=== PATIENT | male | born 1975 | race Caucasian/White ===

== ENCOUNTER 2016-07-16 09:25 | Emergency (ER) | payer SELFPAY ==
--- NOTE | 2016-07-16 09:39 | EDPHY ---
HPI/HX/ROS/PE/MDM Narrative: CHIEF COMPLAINT: Flank pain HPI: The patient is a 40 y/o male arriving with his parents complaining of acute onset severe left flank pain at 06:45, about 3 hours ago, this morning when he urinated. [facility] and a UA there was positive for RBC. He was referred to the ED with concern for a kidney stone. The patient denies gross hematuria, fever, or abdominal pain. He has no prior history of kidney stones or abdominal surgeries. REVIEW OF SYSTEMS: Aside from elements discussed in the HPI, a comprehensive 10-point review of systems was reviewed and is negative. PMH: Neck surgery for abscess SOCIAL HISTORY: Parents at bedside PHYSICAL EXAM: General:Patient is alert, in moderate distress, appears to be in significant pain. ENT:Eyes are normal to inspection. ENT inspection normal. Neck: Normal inspection. Full range of motion. Respiratory:No respiratory distress. Breath sounds normal bilaterally. Cardiovascular: Regular rate and rhythm. Strong peripheral pulses. Normal cap refill. Abdomen:The abdomen is nontender to palpation. There are no peritoneal signs. Back: Normal to inspection. No tenderness to palpation. Skin: Normal color. No rash. Diaphoretic. Extremities: Normal appearance. Full range of motion. Neuro: Oriented x3. Normal motor function. Normal sensory function. ED Course: IV established. Labs drawn including CBC, CHEM. UA ordered. 1L IV NS and 1mg IV Dilaudid administered. CT abdomen/pelvis ordered. 1012: Patient continues to be in significant pain. 100mcg IV Fentanyl administered. 1115: CT shows left uretal stone about to empty into bladder. I discussed these findings with the patient. He is feeling quite improved. He will be discharged with standard kidney stone instructions, scripts for Percocet and Toradol, and referral to Dr. Hauser for follow up. He agrees with plan for discharge. Return precautions given. MDM: This patient presents with signs and symptoms of kidney stone, confirmed by CT. On re-evaluation he feels much better and stone has likely passed into his bladder. He is comfortable with plan to be discharged home with pain meds and urology follow-up. - Data Points Imaging Results: Imaging Impressions Abdomen/Pelvis CT 07/16/16 10:31 Impression: 1. Tiny distal left ureteral calculus, bulging into the bladder lumen, results in mild left hydronephrosis and perinephric edema. 2. Otherwise normal study. Findings discussed with Emergency Department physician, Ra Lima M.D. on July 16, 2016 at 11:06 a.m. Attention: This CT examination is specifically designed to evaluate patients who are clinically suspected of having acute obstructive uropathy. This examination does not use radiographic contrast, and as such, provides only a limited evaluation of the abdomen, pelvis and retroperitoneum. If there is further clinical suspicion for pathological conditions other than obstructive uropathy, a complete CT evaluation of the abdomen and pelvis utilizing intravenous, oral, and rectal contrast should be considered. Imaging: Discussed imaging studies w/ order caller Radiologist, I viewed and interpreted images myself Medications Given: Discontinued Medications Fentanyl (Sublimaze) 100 mcg IVP EDNOW ONE Stop: 07/16/16 10:12 Last Admin: 07/16/16 10:12 Dose: 100 mcg Hydromorphone HCl (Dilaudid) 1 mg IVP EDNOW ONE Stop: 07/16/16 09:41 Last Admin: 07/16/16 09:49 Dose: 1 mg Sodium Chloride (Ns) 1,000 mls @ 0 mls/hr IV ONCE ONE PRN Reason: Wide Open Stop: 07/16/16 09:41 Last Admin: 07/16/16 09:50 Dose: 1,000 mls General Time Seen by Provider: 07/16/16 09:33 Initial Vital Signs: Initial Vital Signs Temperature (C) 36.8 C 07/16/16 09:29 Heart Rate 76 07/16/16 09:29 Respiratory Rate 22 H 07/16/16 09:29 O2 Sat (%) 100 07/16/16 09:29 O2 Delivery Mode Room Air Allergies/Adverse Reactions: metoclopramide [From Reglan] Allergy (Verified 07/16/16 11:20) Home Medications: Medication Instructions Recorded Ketorolac Tromethamine [Toradol] 10 mg PO Q6H #16 tab 07/16/16 oxyCODONE/APAP 5/325 [Percocet 1 - 2 tab PO Q4H PRN #10 tab 07/16/16 5/325] Departure - Departure Disposition: Home, Routine, Self-Care Clinical Impression: Ureteral stone with hydronephrosis, left Condition: Good Instructions: Oxycodone/Acetaminophen (By mouth), Ketorolac (By mouth), Kidney Stones (ED), How to Strain Your Urine (ED) Additional Instructions: 1. Use Percocet and Toradol as prescribed for pain. Do not take ibuprofen or other NSAIDs while using Toradol. 2. Strain your urine as directed. 3. Follow up with Dr. Hauser, urologist, next week. 4. Return to the ED for fever, severe pain, inability to urinate, or other worsening of condition. Referrals: Rony Hauser MD [Medical Doctor] - As per Instructions Prescriptions: Ketorolac Tromethamine [Toradol] 10 mg PO Q6H #16 tab oxyCODONE/APAP 5/325 [Percocet 5/325] 1 - 2 tab PO Q4H PRN #10 tab PRN Reason: Pain, Severe Report Scribed for: Ra Lima Report Scribed by: Blanche Bunch Date of Report: 07/16/16 Time of Report: 09:35 Physician Review and Approval Statement: Portions of this note were transcribed by an ED scribe. I personally performed the history, physical exam, and medical decision making; and confirm the accuracy of the information in the transcribed note.
[2016-07-16] MEDS ORDERED: NS 1,000 ML IV ONE (09:40)
[2016-07-16] MEDS ORDERED: HYDROmorphONE/DILAUDID 1 MG/ML SYR IVP ONE (09:40)
[2016-07-16] MEDS ORDERED: fentaNYL 100 MCG/2 ML INJ IVP ONE (10:11)
[2016-07-16 12:16] VITALS: RESP 16
[2016-07-16 13:09] VITALS: BP 120/61; PULSE 85; TEMP 97.5; O2SAT 96
== END 2016-07-16 13:08 | disposition home or self-care (01) ==
DX: N20.1 Calculus of ureter (principal); N13.30 Unspecified hydronephrosis
CPT/HCPCS: 96374; J1170; J3010